=== PATIENT | female | born 1955 | race Caucasian/White ===

== ENCOUNTER 2023-10-02 08:26 | Day surgery (SDC) | payer OTHER, MEDICAID ==
[~2023-10-02] VITALS: Ht 160 cm; Wt 58.1 kg
[2023-10-02] MEDS ORDERED: fentaNYL citrate 0.05 MG/ML VIAL ONE (11:40)
[2023-10-02] MEDS: fentaNYL citrate 0.05 MG/ML VIAL IVP ONE (12:00)
[2023-10-02] MEDS: LIDOCAINE 2% 100 MG/5 ML UJET TP ONE (12:04)
== END 2023-10-02 13:24 | disposition home or self-care (01) ==
LOC: MDS 08:26 → MMU 08:27 → MDS 13:24
PROVIDERS: ATTEND Internal Medicine Gastroenterology
DX: Z12.11 Encounter for screening for malignant neoplasm of colon (principal); Z91.040 Latex allergy status; Z79.899 Other long term (current) drug therapy; Z98.890 Other specified postprocedural states
CPT/HCPCS: 45378; J3010